=== PATIENT | male | born 1985 | race Caucasian/White ===

== ENCOUNTER 2018-08-04 19:07 | Emergency (ER) | payer OTHER ==
--- NOTE | 2018-08-04 19:21 | EDPHY ---
HPI/HX/ROS/PE/MDM Narrative: CHIEF COMPLAINT: Chest pain HISTORY OF PRESENT ILLNESS: The patient is a 33 y/o male complaining of chest pain for the past 3 weeks. During the past three weeks, he has had chest pain described as a pressure in the left mid part of the chest. The pain has been better and worse during the three weeks but did not fully resolve. The pain is worse with caffeine and being in a car. He has associated dizziness, shortness of breath, dry mouth, and fatigue. He denies any other associated symptoms. He denies history of cardiac conditions, diabetes, hypertension, or any other conditions. He reports he was a heavy drinker 2 years ago and now has less than 1 beer per week. He has a family history of "heart attacks and strokes" before 50. Mother did have some cardiac event in her 50s. No fever, chills, vomiting, diarrhea, urinary complaints, headache, lightheadedness. Denies cold symptoms, runny nose, fever. REVIEW OF SYSTEMS: A comprehensive 10 system review of systems is otherwise negative aside from elements mentioned in the history of present illness and medical decision making PAST MEDICAL HISTORY: Denies SOCIAL HISTORY: Sister at bedside, nonsmoker, light alcohol use VITAL SIGNS: Reviewed by me GENERAL: Well-developed, well-nourished, resting comfortably in no respiratory distress. HEENT: Atraumatic. Eyes: No icterus, no injection. Mouth: moist mucous membranes. No erythema or lesions. Neck: supple with no adenopathy. LUNGS: Slightly diminished breath sounds, otherwise clear, no wheezes, rhonchi or rales. CARDIAC: Regular rate and rhythm, no rubs, murmurs or gallops. ABDOMEN: Soft, nontender, nondistended, bowel sounds normal. BACK: No CVA tenderness. EXTREMITIES: No trauma. No edema. Range of motion is normal throughout. NEURO: Alert and oriented, grossly nonfocal. SKIN: Warm and dry, no rash. PSYCHIATRIC: Normal mentation, no agitation. Slightly anxious. ED Course: Study: X-ray of the chest Indication: Chest pain Results: X-ray of the chest was obtained. The results of the study are: airways disease with possible pneumonia The study was read by the radiologist, Dr. Muro. I viewed the images myself on the PACS system. 12-LEAD EKG: Please see the full report in [facility]. My interpretation: Sinus rhythm, no ischemic changes. The patient presents for 3 weeks of chest pain. The pain is described as a pressure and is accompanied by shortness of breath, dizziness, and dry mouth. The pain has had periods of worsening and periods of improving but has not resolved during this time. He denies history of diabetes, cardiac conditions, hypertension, or other conditions. He has a family history of strokes and heart attacks before 50. Plan for CBC, basic metabolic panel, D-dimer, troponin, EKG, and chest x-ray. 20:00 - Chest x-ray shows airways disease with a possible early infiltrate on my reading. Plan for albuterol nebulizer and reevaluation. Patient received an albuterol neb and reports improvement in his sensation of chest discomfort. At this point, with negative troponin, negative D-dimer, and a history of relatively constant chest discomfort over 3 weeks time the nonischemic EKG and negative troponin, I do not feel any acute urgent evaluation for coronary artery disease as needed. Patient's and symptoms have improved with albuterol neb and chest x-ray is consistent with airways disease. He was placed on a 5 day course of azithromycin, provided with prednisone as well as a albuterol meter dose inhaler, and encouraged to follow up with his primary care physician. He understands reasons to return to the emergency department. MDM: Differential diagnosis for the patient's shortness of breath was considered including but not limited to pulmonary infectious processes, COPD exacerbation, pulmonary emboli, pulmonary edema, congestive heart failure, and cardiac causes. - Data Points Imaging Results: Impression: Findings are most consistent with bronchitis/airways disease. Basilar opacities are present more pronounced on the left probably reflecting atelectasis with clinical correlation to exclude pneumonia. Results called and discussed with Cony Pierre MD on 08/04/2018 at 19:59. Dictated By: Yvan Muro MD Imaging: I viewed and interpreted images myself Laboratory Results: Laboratory Results 08/04/18 19:20 08/04/18 19:20 Medications Given: Discontinued Medications Albuterol (Proventil Neb) 3 ml IH EDNOW ONE Stop: 08/04/18 20:01 Last Admin: 08/04/18 20:07 Dose: 3 ml Albuterol Sulfate (Proventil Inh Prepack) 1 mdi TAKEHOME EDNOW ONE Stop: 08/04/18 20:15 Last Admin: 08/04/18 20:22 Dose: 1 mdi Azithromycin (Zithromax) 500 mg PO EDNOW ONE PRN Reason: Protocol Stop: 08/04/18 20:15 Last Admin: 08/04/18 20:22 Dose: 500 mg Sodium Chloride (Ns) 500 mls @ 1,000 mls/hr IV EDNOW ONE PRN Reason: Protocol Stop: 08/04/18 20:01 Last Admin: 08/04/18 19:40 Dose: 500 mls Prednisone (Prednisone) 60 mg PO EDNOW ONE Stop: 08/04/18 20:15 Last Admin: 08/04/18 20:22 Dose: 60 mg Point of Care Test Results: Chemistry 08/04/18 19:27 POC Troponin I 0.00 ng/mL ng/mL (0.00-0.08) General Time Seen by Provider: 08/04/18 19:11 Initial Vital Signs: Initial Vital Signs Temperature (C) 36.9 C 08/04/18 19:14 Heart Rate 74 08/04/18 19:14 Respiratory Rate 13 08/04/18 19:14 Blood Pressure 148/88 H 08/04/18 19:14 O2 Sat (%) 96 08/04/18 19:14 O2 Delivery Mode Room Air Allergies/Adverse Reactions: No Known Allergies Allergy (Unverified 08/04/18 19:14) Home Medications: Medication Instructions Recorded Azithromycin [Zithromax] 250 mg PO DAILY #4 tab 08/04/18 predniSONE 40 mg PO DAILY #4 tab 08/04/18 Departure - Departure Disposition: Home, Routine, Self-Care Clinical Impression: Palpitations, airways disease, Bronchitis Chest pain Qualifiers: Chest pain type: unspecified Qualified Code(s): R07.9 - Chest pain, unspecified Condition: Good Instructions: Albuterol (By breathing), Chest Pain (ED), How to Use a Metered- Dose Inhaler (ED), Acute Bronchitis (ED) Additional Instructions: Your chest x-ray indicate some inflammation of the airways in your lungs. This may be the cause of your symptoms. We have given you a meter dose inhaler. Please use this as directed to see if that helps with the shortness of breath. Albuterol 2-4 puffs every 4-6 hours as needed for shortness of breath and chest discomfort. We have also given you a short course prednisone. This may also help with inflammation in your lungs. Please begin taking this tomorrow evening. We have also given you a prescription for an antibiotic. The first dose was given in the emergency department. Please fill this prescription and take it as directed starting tomorrow. Please follow up with a primary care physician. You been given referral to Dr. Malloy. Referrals: Laura Malloy MD [Medical Doctor] - As per Instructions Stand Alone Forms: Work Excuse Prescriptions: Azithromycin [Zithromax] 250 mg PO DAILY #4 tab predniSONE 40 mg PO DAILY #4 tab Report Scribed for: Cony Pierre Report Scribed by: Sweta Denton Date of Report: 08/04/18 Time of Report: 19:36 Physician Review and Approval Statement: Portions of this note were transcribed by a medical research tech. I personally performed a history, physical exam, medical decision making, and confirmed accuracy of information the transcribed note.
[2018-08-04] MEDS ORDERED: NS 500 ML IV ONE (19:32)
[2018-08-04 19:41] LABS: PLATELET COUNT 280 10^3/uL (150-400)
[2018-08-04] MEDS ORDERED: ALBUTEROL 3 ML DEYVIAL IH ONE (20:00)
[2018-08-04] MEDS ORDERED: predniSONE 20 MG TAB PO ONE (20:14)
[2018-08-04] MEDS ORDERED: ALBUTEROL INH PREPACK MDI TAKEHOME ONE (20:14)
[2018-08-04] MEDS ORDERED: AZITHROMYCIN 250 MG TAB PO ONE (20:14)
[2018-08-04 20:42] VITALS: BP 114/76
--- NOTE | 2018-08-10 12:48 | CPEKG ---
Test Reason : OPEN Blood Pressure : / mmHG Vent. Rate : 075 BPM Atrial Rate : 072 BPM P-R Int : 182 ms QRS Dur : 106 ms QT Int : 373 ms P-R-T Axes : 049 059 044 degrees QTc Int : 417 ms Sinus rhythm Borderline T wave abnormalities Confirmed by Cony Pierre ([id number]) on 08/10/2018 12:48:18 PM Referred By: Cony Pierre Confirmed By:Cony Pierre
== END 2018-08-04 20:41 | disposition home or self-care (01) ==
DX: R07.9 Chest pain, unspecified (principal); R00.2 Palpitations; J40 Bronchitis, not specified as acute or chronic; I10 Essential (primary) hypertension; E11.9 Type 2 diabetes mellitus without complications; Z79.4 Long term (current) use of insulin
CPT/HCPCS: 84484-ER; J7512; J7613